=== PATIENT | female | born 1975 | race Asian ===

== ENCOUNTER 2021-11-17 09:02 | Outpatient (CLI) | payer BC, SELFPAY ==
[2021-11-17 11:22] LABS: Chloride* 101 mmol/L (96-114); Sodium* 138 mmol/L (135-149)
[2021-11-17 11:24] LABS: Cholesterol* 177 mg/dL (90-199); Creatinine* 0.5 mg/dL (0.5-1.5); Estimated Glomerular Filt Rate 116 ml/min
[2021-11-17 11:25] LABS: Blood Urea Nitrogen* 17 mg/dL (5-24); Calcium* 9.3 mg/dL (8.4-10.6); Carbon Dioxide* 27 mmol/L (20-32); Glucose* 144 mg/dL (60-115); HDL Cholesterol* 46 mg/dL (>=50); LDL Cholesterol Calculated 93 mg/dL (<100); Triglycerides* 189 mg/dL (40-149)
[2021-11-17 11:42] LABS: Creatinine Urine 150.4 mg/dL; Microalbumin Creatinine Ratio 10 mg/g (0-30); Microalbumin Urine 2 mg/dL
== END 2021-11-17 09:03 | disposition home or self-care (01) ==
PROVIDERS: PCP Family Medicine; Visit Provider Family Medicine
DX: E11.9 Type 2 diabetes mellitus without complications (principal); E78.5 Hyperlipidemia, unspecified; R03.0 Elevated blood-pressure reading, without diagnosis of hypertension; I10 Essential (primary) hypertension
CPT/HCPCS: 80048; 80061; 82043; 82570

== ENCOUNTER 2021-12-08 08:53 | Outpatient (CLI) | payer BC, SELFPAY ==
--- OUTSIDE RECORDS SUMMARY | 2021-12-08 08:33 | XMS_ITS | Clinical Summary ---
:1975 Author Organization [facility] [place] [address] Care Team Providers Name Role Phone Scott Cavanaugh MD Primary Care Provider [phone] Allergies No known active allergies Medications No known medications Active Problems Not on file Social History Tobacco Use Types Packs/Day Years Used Date Never Smoker Smokeless Tobacco: Never Used Alcohol Use Standard Drinks/Week Comments Not Asked 0 (1 standard drink = 0.6 oz pure alcoho l) Sex Assigned at Date Recorded Not on file Obstetrics History Last Filed Vital Signs Vital Sign Reading Time Taken Comments Blood Pressure 127/78 10/03/2010 5:52 PM CDT Pulse 62 10/03/2010 5:52 PM CDT Temperature 36.8 ??C (98.2 ??F) 10/03/2010 5:52 PM CDT Respiratory Rate - - Oxygen Saturation - - Inhaled Oxygen Concentration - - Weight 67.1 kg (148 lb) 10/03/2010 5:52 PM CDT Height - - Body Mass Index - - Plan of Treatment Health Maintenance Due Date Last Done Comments COVID-19 vaccine series (#1) 03/19/1975 Tdap 1985 Depression screening for age 12+ 1986 BMI (ht and wt on same day) for 1992 age 18+ Hepatitis C screening for age 0709/16/1992 18-79 Tetanus booster 1994 Colonoscopy through age 75 09/17/2019 Lipids for age 45-75 09/17/2019 Mammogram for age 45-75 09/17/2019 Pap test for age 21-65 10/06/2021 10/06/2018, 10/06/2018, 10/18/2011, Additional history exists Influenza for age 9-49 11/16/2021 Results Not on filefrom Last 3 Months Insurance Payer Benefit Plan / Subscriber ID Effective Dates Phone Addre ss Type Group BLUE CROSS BLUE CROSS OF [id number] 2007-Present [address] [place] [address] Care Teams Loan Reviewer Relationship Specialty Start Date End Date Votel, Scott Miller MD PCP - General Family Practice 10/03/10 [address] [place], [place] [id number]
[2021-12-08 09:37] LABS: Chloride* 100 mmol/L (96-114); Potassium* 4.6 mmol/L (3.6-5.1); Sodium* 137 mmol/L (135-149)
[2021-12-08 09:39] LABS: Creatinine* 0.6 mg/dL (0.5-1.5); Estimated Glomerular Filt Rate 111 ml/min
[2021-12-08 09:40] LABS: Blood Urea Nitrogen* 13 mg/dL (5-24); Carbon Dioxide* 28 mmol/L (20-32); Glucose* 172 mg/dL (60-115)
[2021-12-08 09:41] LABS: Calcium* 9.6 mg/dL (8.4-10.6)
== END 2021-12-08 08:54 | disposition home or self-care (01) ==
PROVIDERS: PCP Family Medicine; Visit Provider Family Medicine
DX: I10 Essential (primary) hypertension (principal)
CPT/HCPCS: 80048

== ENCOUNTER 2022-02-27 07:45 | Outpatient (CLI) | payer BC, SELFPAY ==
--- OUTSIDE RECORDS SUMMARY | 2022-02-27 07:49 | XMS_ITS | Clinical Summary ---
:1975 Author Organization [employer] [facility] [place] [address] Care Team Providers Name Role Phone Scott Cavanaugh MD Primary Care Provider [phone] Allergies No known active allergies Medications No known medications Active Problems Not on file Social History Tobacco Use Types Packs/Day Years Used Date Smoking Tobacco: Never Smokeless Tobacco: Never Alcohol Use Standard Drinks/Week Comments Not Asked [...] 1985 Depression screening for age 12+ 1986 HIV for age 15-65 1989 BMI (ht and wt on same day) [...] Type Group BLUE CROSS BLUE CROSS OF [id number] 2007-Present [address] [place] [address] Care Teams Machine Shop Worker Relationship Specialty Start Date End Date Votel, Scott Miller MD PCP - General Family Practice 10/03/10 [address] [place], [place] [id number]
[2022-02-27 09:08] LABS: Albumin* 4.7 g/dL (3.3-5.0)
[2022-02-27 09:09] LABS: Chloride* 103 mmol/L (96-114); Potassium* 4.6 mmol/L (3.6-5.1); Sodium* 138 mmol/L (135-149)
[2022-02-27 09:11] LABS: Aspartate Amino Transferase* 24 U/L (12-35); Bilirubin Total* 1.3 mg/dL (0.1-1.5); Blood Urea Nitrogen* 14 mg/dL (5-24); Carbon Dioxide* 28 mmol/L (20-32); Cholesterol* 173 mg/dL (90-199); Creatinine* 0.5 mg/dL (0.5-1.5); Estimated Glomerular Filt Rate 116 ml/min; Total Protein* 7.5 g/dL (6.0-8.3)
[2022-02-27 09:12] LABS: Alanine Aminotransferase* 34 U/L (4-35); Alkaline Phosphatase* 64 U/L (40-150); Calcium* 9.2 mg/dL (8.4-10.6); Glucose* 142 mg/dL (60-115); HDL Cholesterol* 46 mg/dL (>=50); LDL Cholesterol Calculated 61 mg/dL (<100); Triglycerides* 328 mg/dL (40-149)
== END 2022-02-27 07:46 | disposition home or self-care (01) ==
LOC: NFLDREF 07:46
PROVIDERS: PCP Family Medicine; Visit Provider Family Medicine
DX: E78.5 Hyperlipidemia, unspecified (principal); I10 Essential (primary) hypertension
CPT/HCPCS: 80053; 80061

== ENCOUNTER 2022-03-20 09:04 | Outpatient (CLI) | payer BC, SELFPAY ==
--- NOTE | 2022-03-20 09:15 | CRLHL7_ITS ---
For Patients: As a result of the Century Cures Act, medical imaging exams and procedure reports are released immediately into your electronic medical record. You may view this report before your referring provider. If you have questions, please contact your health care provider. BILATERAL SCREENING MAMMOGRAM WITH COMPUTER-AIDED DETECTION AND TOMOSYNTHESIS TECHNIQUE: CC and MLO views were obtained. These mammographic images have been obtained using full-field digital technique. These mammographic images were interpreted with the benefit of computer-aided detection. Breast Tomosynthesis was used in this interpretation. COMPARISON FILM: 12/06/20, 11/20/19, 11/10/18. FINDINGS: The breasts are heterogeneously dense, which may obscure small masses IMPRESSION: There is no radiographic evidence for malignancy. ASSESSMENT: BI-RADS Category 1: Negative RECOMMENDATION: Routine screening mammogram in 1 year. A lay language report of this examination will be provided to the patient. Santos Thompson M.D. Diagnostic Radiologist [email or web address] LENNOX/[email or web address] vick/Dictated by: Santos Thompson MD @ 03/21/2022 12:25:00 PM (Electronically Signed)
== END 2022-03-20 09:05 | disposition home or self-care (01) ==
LOC: MAMMO 09:06
PROVIDERS: PCP Family Medicine; Visit Provider Family Medicine
DX: Z12.31 Encounter for screening mammogram for malignant neoplasm of breast (principal); R92.2 Inconclusive mammogram
CPT/HCPCS: 77063; 77067

== ENCOUNTER 2022-03-30 07:46 | Outpatient (CLI) | payer BC, SELFPAY | END 2022-03-30 07:47 | disposition home or self-care (01) | LOC: OP CLINIC 07:49 | PROVIDERS: PCP Family Medicine; Visit Provider Internal Medicine | DX: Z12.11 Encounter for screening for malignant neoplasm of colon (principal) | CPT/HCPCS: 45378; J2250; J3010 ==

== ENCOUNTER 2022-09-04 15:10 | Outpatient (CLI) | payer BC, SELFPAY | END 2022-09-04 15:11 | disposition home or self-care (01) | LOC: NFLDREF 09-05 01:47 | PROVIDERS: PCP Family Medicine; Visit Provider Family Medicine | DX: E78.5 Hyperlipidemia, unspecified (principal); E11.9 Type 2 diabetes mellitus without complications; I10 Essential (primary) hypertension; R05.8 Other specified cough; Z79.899 Other long term (current) drug therapy | CPT/HCPCS: 80061 ==

== ENCOUNTER 2023-03-26 19:08 | Outpatient (CLI) | payer BC, SELFPAY ==
--- NOTE | 2023-03-26 19:20 | CRLHL7_ITS ---
For Patients: As a result of the Cures Act, medical imaging exams and procedure reports are released immediately into your electronic medical record. You may view this report before your referring provider. If you have questions, please contact your health care provider. BILATERAL SCREENING MAMMOGRAM WITH COMPUTER-AIDED DETECTION AND TOMOSYNTHESIS TECHNIQUE: CC and MLO views were obtained. These mammographic images have been obtained using full-field digital technique. These mammographic images were interpreted with the benefit of computer-aided detection. Breast Tomosynthesis was used in this interpretation. COMPARISON FILM: 03/20/22, 12/06/20, 11/20/19. FINDINGS: The breasts are heterogeneously dense, which may obscure small masses IMPRESSION: There is no radiographic evidence for malignancy. ASSESSMENT: BI-RADS Category 1: Negative RECOMMENDATION: Routine screening mammogram in 1 year. A lay language report of this examination will be provided to the patient. ROGER CLARK M.D. Diagnostic/Nuclear Medicine Radiologist [email or web address] CHIRAG:[email or web address] Transcribed: 3:32 p.mFranko vick/Dictated by: Roger Clark MD @ 03/28/2023 8:44:00 AM (Electronically Signed)
--- OUTSIDE RECORDS SUMMARY | 2023-03-26 19:22 | XMS_ITS | Clinical Summary ---
Author Name Unknown Organization [facility] Address [place] [address] Care Team Providers Care Enrobing Machine Feeder Name Role Phone VotelScott MD Primary Care Provider + Allergies No known active allergies Medications No known medications Social History Tobacco Use Types Packs/Day Years Used Date Smoking Tobacco: Never Smokeless Tobacco: Never Alcohol Use Standard Drinks/Week Comments Not Asked 0 (1 standard drink = 0.6 oz pur e alcohol) Sex and Gender Information Value Date Recorded Sex Assigned at Not on file Gender Identity Not on file Sexual Orientation Not on file Obstetrics History Last Filed Vital Signs Vital Sign Reading Time Taken Comments Blood Pressure 127/78 10/03/2010 5:52 PM CDT Pulse 62 10/03/2010 5:52 PM CDT Temperature 36.8 ??C (98.2 ??F) 10/03/2010 5:52 PM CD T Respiratory Rate - - Oxygen Saturation - [...] (ht and wt on same day) for age 18+ 1992 Hepatitis C screening for age 18-79 1992 Tetanus booster 1994 Colonoscopy through age 75 09/17/2019 Lipids for age 45-75 09/17/2019 Mammogram for age 45-75 09/17/2019 Pap test for age 21-65 10/06/2021 9, 10/06/2018, 10/18/2011, Additional history exists Influenza for age 9-49 11/16/2022 Pneumococcal series for age 6-64 Aged Out No longer eligible based on patient's age to complete this topic Care Teams Enrobing Machine Feeder Relationship Specialty Start Date End Date Votel, Scott Miller MD [address] [place] [address] PCP - General Family Practice 10/03/10
== END 2023-03-26 19:09 | disposition home or self-care (01) ==
LOC: MAMMO 19:09
PROVIDERS: PCP Family Medicine; Visit Provider Family Medicine
DX: Z12.31 Encounter for screening mammogram for malignant neoplasm of breast (principal); R92.2 Inconclusive mammogram
CPT/HCPCS: 77063; 77067

== ENCOUNTER 2023-04-08 08:29 | Outpatient (CLI) | payer BC, SELFPAY ==
--- OUTSIDE RECORDS SUMMARY | 2023-04-09 06:57 | XMS_ITS | Clinical Summary ---
Author Name Unknown Organization [facility] Address [place] [address] Care Team Providers Care Door Liner Helper Name Role Phone VotelScott MD Primary Care [...] age to complete this topic Care Teams Door Liner Helper Relationship Specialty Start Date End Date Votel, Scott Miller MD [address] [place] [address] PCP - General Family Practice 10/03/10
== END 2023-04-08 08:30 | disposition home or self-care (01) ==
LOC: NFLDREF 04-09 06:56
PROVIDERS: PCP Family Medicine; Referring Provider Family Medicine; Visit Provider Family Medicine
DX: E11.9 Type 2 diabetes mellitus without complications (principal); I10 Essential (primary) hypertension; E78.5 Hyperlipidemia, unspecified; Z79.899 Other long term (current) drug therapy
CPT/HCPCS: 80053; 80061; 80076; 82043; 82570; 82607

== ENCOUNTER 2023-04-17 07:01 | Outpatient (CLI) | payer BC, SELFPAY ==
--- OUTSIDE RECORDS SUMMARY | 2023-04-17 07:04 | XMS_ITS | Clinical Summary ---
Author Name Unknown Organization [facility] Address [place] [address] Care Team Providers Care Nurse Charge Rn Name Role Phone VotelScott MD Primary Care Provider + Allergies No known active allergies Medications No known medications Encounters Date Type Department Care Team Description 04/12/2023 Lab Requisition [facility] [phone] Monika Garcias MD from Last 3 Months Social History Tobacco Use Types Packs/Day Years [...] 45-75 09/17/2019 Mammogram for age 45-75 09/17/2019 Influenza for age 9-49 11/16/2022 Pap test for age 21-65 04/12/2026 4, 10/06/2018, 10/06/2018, Additional history exists Pneumococcal series for age 6-64 Aged Out No longer eligible based on patient's age to complete this topic Procedures Procedure Name Priority Date/Time Associated Diagnosis Comments LAB TRACKING EVENT Routine 04/12/2023 10 :40 AM CELEBRITY CHEF ENTREPRENEUR MEDIA PERSONALITY HPV THIN PREP Routine 04/12/2023 10:40 AM CELEBRITY CHEF ENTREPRENEUR MEDIA PERSONALITY from Last 3 Months Results * LAB TRACKING EVENT (04/12/2023 10:40 AM CELEBRITY CHEF ENTREPRENEUR MEDIA PERSONALITY) Other (Other) Client Collect / Unknown 04/12/2023 10:40 AM CELEBRITY CHEF ENTREPRENEUR MEDIA PERSONALITY 04/12/2023 6:22 PM CELEBRITY CHEF ENTREPRENEUR MEDIA PERSONALITY Monika Garcias MD LAB BILL ONLY [facility] [address] * HPV HIGH RISK (04/12/2023 10:40 AM CELEBRITY CHEF ENTREPRENEUR MEDIA PERSONALITY) TYPE 16 Negative Negative 04/16/2023 4:22 PM CELEBRITY CHEF ENTREPRENEUR MEDIA PERSONALITY [facility] TYPE 18 Negative Negative 04/16/2023 4:22 PM CELEBRITY CHEF ENTREPRENEUR MEDIA PERSONALITY [facility] OTHER HIGH RISK TYPES Negative Negative 04/16/2023 4:22 PM CELEBRITY CHEF ENTREPRENEUR MEDIA PERSONALITY [facility] TRAL LABORATORY Other (Cervical/Vagina l) 04/12/2023 10:40 AM CELEBRITY CHEF ENTREPRENEUR MEDIA PERSONALITY 04/15/2023 12:27 PM CELEBRITY CHEF ENTREPRENEUR MEDIA PERSONALITY [facility] 04/16/2023 4:22 PM CELEBRITY CHEF ENTREPRENEUR MEDIA PERSONALITY HPV types 16, 18, 31, 33, 35, 39, 45, 51, 52, 56, 58, 59, 66 and 68 DNA were undetectable or below the pre-set threshold. Methodology: Peter Benita 4800 HPV Test Monika Garcias MD MICROBIOLOGY [facility] [address] [place] [address], [place] from Last 3 Months Care Teams Nurse Charge Rn Relationship Specialty Start Date End Date Votel, Scott Miller MD [address] [place] [address] PCP - General Family Practice 10/03/10
--- NOTE | 2023-04-17 07:15 | CRLHL7_ITS ---
For Patients: As a result of the Century Cures Act, medical imaging exams and procedure reports are released immediately into your electronic medical record. You may view this report before your referring provider. If you have questions, please contact your health care provider. INDICATION: elevated LFTs. COMPARISON: none TECHNIQUE: Real time feliciano scale imaging and color Doppler analysis was performed of the right upper quadrant. FINDINGS: The patient`s liver is of normal size and has diffusely increased echogenicity. Simple cyst is present within the left hepatic lobe measuring 12 x 11 x 14 millimeters. There is a normal appearance of the hepatic IVC and proximal abdominal aorta. There is no evidence of ascites. The gallbladder is of normal size and there is mild layering debris. The gallbladder wall measures 1 mm in thickness. The common bile duct is of normal size and measures 4 mm in diameter at the level of the hardeep hepatis. The pancreas appears normal. There is no evidence of a stone or hydronephrosis within the right kidney. The right kidney measures 9.6 cm in length. IMPRESSION: Diffuse hepatic steatosis. Mild layering sludge/cholesterol stones in the gallbladder consistent with cholelithiasis. Dictated by Santos Thompson MD @ 04/17/2023 10:05:58 AM (Electronically Signed)
== END 2023-04-17 07:02 | disposition home or self-care (01) ==
LOC: US 07:02
PROVIDERS: PCP Family Medicine; Visit Provider Family Medicine
DX: R74.8 Abnormal levels of other serum enzymes (principal); K76.0 Fatty (change of) liver, not elsewhere classified; K80.20 Calculus of gallbladder without cholecystitis without obstruction
CPT/HCPCS: 76705

== ENCOUNTER 2023-07-08 08:32 | Outpatient (CLI) | payer BC, SELFPAY ==
--- OUTSIDE RECORDS SUMMARY | 2023-07-10 11:39 | XMS_ITS | Clinical Summary ---
Author Name Unknown Organization [facility] [facility] Address [place] [address] Care Team Providers Care Rn Emergency Room Name Role Phone VotelScott MD Primary Care Provider + Allergies No known active allergies Medications No known medications Encounters Date Type Department Care Team Description 04/12/2023 Lab Requisition [facility] [phone] Monika Garcias MD from Last 3 Months [...] Health Maintenance Due Date Last Done Comments Tdap 1985 Depression screening for age 12+ 1986 HIV for age 15-65 1989 BMI (ht and wt on same day) for age 18+ 1992 Hepatitis C screening for age 18-79 1992 Tetanus booster 1994 Colonoscopy through age 75 09/17/2019 Lipids for age 45-75 09/17/2019 Mammogram for age 45-75 09/17/2019 COVID-19 vaccine series (2022- season) 2022 Influenza for age 9-49 11/17/2023 Pap test for age 21-65 04/12/2026 4, 10/06/2018, 10/06/2018, Additional history exists Pneumococcal series for age 6-64 Aged Out No longer eligible based on patient's age to complete this topic Procedures Procedure Name Priority Date/Time Associated Diagnosis Comments LAB TRACKING EVENT Routine 04/12/2023 10 :40 AM BREAKER UP MACHINE OPERATOR CHALK EXTRUDING MACHINE OPERATOR THIN PREP PAP SCREEN IMAGED- Unsuccessful Attempt Routine 04/12/2023 10:40 AM BREAKER UP MACHINE OPERATOR HPV THIN PREP Routine 04/12/2023 10:40 AM BREAKER UP MACHINE OPERATOR from Last 3 Months Results * LAB TRACKING EVENT (04/12/2023 10:40 AM BREAKER UP MACHINE OPERATOR) Other (Other) Client Collect / Unknown 04/12/2023 10:40 AM BREAKER UP MACHINE OPERATOR 04/12/2023 6:22 PM BREAKER UP MACHINE OPERATOR Monika Garcias MD LAB BILL ONLY [facility] LABORATORY [address] [place] [address], * CHALK EXTRUDING MACHINE OPERATOR THIN PREP PAP SCREEN IMAGED (04/12/2023 10:40 AM BREAKER UP MACHINE OPERATOR) - Unsuccessful Attempt Case Report Gynecologic Cytology Report ? Case: [id number] ? Authorizing Provider: ??Monika Garcias MD ??Collected: ? 04/12/2023 1040 ? Ordering Location: ? [facility] ?Received: ?04/15/2023 1227 ? First Screen: ?Sulema Barajas ? Rescreen: ?Jessica Cruz ? Specimen: ?CHALK EXTRUDING MACHINE OPERATOR ThinPrep Vial Screening, Cervical/Vaginal ? [facility]/23[facility]2023 7:04 [facility] INTERPRETATION /RESULT UNSATISFACTORY FOR EVALUATION (UNS) (none) 04/23/2023 7:04 AM [facility] IMEN ADEQUACY Specimen processed and examined, but unsatisfactory for evaluation of epithelial abnormality because of: Scant cellularity 04/23/2023 7:04 AM [facility] [employer] LABORATORY-C ENTRAL LABORATORY HPV REQUEST HPV and PAP 04/23/2023 7:04 AM [facility] [employer] LABORATORY-C ENTRAL LABORATORY Date of LMP 04/23/2023 7:04 AM [facility] Comment:unknown Last Pap Date 10/06/2018 04/23/2023 7:04 AM [facility] [employer] LABORATORY-C ENTRAL LABORATORY Last Pap Result NIL 04/23/2023 7:04 AM [facility] [employer] LABORATORY-C ENTRAL LABORATORY Abnormal Pap or Browns Bx in last 5 years No 04/23/2023 7:04 AM [facility] [employer] LABORATORY-C ENTRAL LABORATORY Browns Bx Done Today No 04/23/2023 7:04 AM [facility] Additional Information 04/23/2023 7:04 AM BREAKER UP MACHINE OPERATOR [facility] ENTRND LABORATORY Comment: Interpreted at [facility] - [address] [facility] [address], [place] [address] Automated Review Failed 04/23/2023 7:04 AM [facility] ENTRND LABORATORY Comment:Processing failed, m anual screening required. ThinPrep Imaging System, [employer] ANCILLARY TESTING CHALK EXTRUDING MACHINE OPERATOR HPV Ordered, Please see separate report 04/23/2023 7:04 AM [facility] Note The pap test is a screening technique, not a diagnostic procedure. It is used primarily to screen for squamous cancers and precursor lesions. Published studies have shown that it is subject to both false negative and false positive results. The pap test should not be used as the sole means to diagnose or exclude pre-malignant and malignant lesions. 04/23/2023 7:04 AM BREAKER UP MACHINE OPERATOR [facility] ENTRND LABORATORY Other (Cervical/Vagina l) 04/12/2023 10:40 AM BREAKER UP MACHINE OPERATOR 04/15/2023 12:27 PM BREAKER UP MACHINE OPERATOR Monika Garcias MD PATHOLOGY/CYTOLO GY [facility] [address] [place] [address], * HPV HIGH RISK (04/12/2023 10:40 AM BREAKER UP MACHINE OPERATOR) TYPE 16 Negative Negative 04/16/2023 4:22 PM BREAKER UP MACHINE OPERATOR [facility] TRAL LABORATORY TYPE 18 Negative Negative 04/16/2023 4:22 PM BREAKER UP MACHINE OPERATOR [facility] TRAL LABORATORY OTHER HIGH RISK TYPES Negative Negative 04/16/2023 4:22 PM BREAKER UP MACHINE OPERATOR [facility] TRA LABORATORY Other (Cervical/Vagina l) 04/12/2023 10:40 AM BREAKER UP MACHINE OPERATOR 04/15/2023 12:27 PM BREAKER UP MACHINE OPERATOR Narrative [facility] - 04/16/2023 4:22 PM BREAKER UP MACHINE OPERATOR HPV types 16, 18, 31, 33, 35, 39, 45, 51, 52, 56, 58, 59, 66 and 68 DNA were undetectable or below the pre-set threshold. Methodology: Peter Benita 4800 HPV Test Monika Garcias MD MICROBIOLOGY [facility] LABORATORY-CENTRAL LABORATORY [address] [place] [address], from Last 3 Months Care Teams Rn Emergency Room Relationship Specialty Start Date End Date Votel, Scott Miller MD [address] [place] [address] PCP - General Family Practice 10/03/10
== END 2023-07-08 08:33 | disposition home or self-care (01) ==
LOC: NFLDREF 07-10 11:34
PROVIDERS: PCP Family Medicine; Referring Provider Family Medicine; Visit Provider Family Medicine
DX: E78.5 Hyperlipidemia, unspecified (principal); I10 Essential (primary) hypertension; R74.8 Abnormal levels of other serum enzymes
CPT/HCPCS: 80053

== ENCOUNTER 2024-01-06 07:55 | Outpatient (CLI) | payer BC, SELFPAY ==
--- OUTSIDE RECORDS SUMMARY | 2024-01-07 15:53 | XMS_ITS | Clinical Summary ---
Author Organization [employer] [facility] Address [place] [address] Care Team Providers Care Lead Business Systems Analyst Name Role Phone VotelScott MD Primary Care [...] for age 45-75 09/17/2019 COVID-19 vaccine series (2023- season) 2023 Influenza for age 9-49 11/17/2023 Pap test for age 21-65 04/12/2026 , 10/06/2018, 10/06/2018, Additional history exists Pneumococcal series for age 6-64 Aged Out No longer eligible based on patient's age to complete this topic Procedures Procedure Name Priority Date/Time Associated Diagnosis Comments HPV HIGH RISK Routine 04/12/2023 10:40 AM QUALITY CONTROL TESTER from Last 3 Months or Most Recently Relevant to Health Maintenance Results * HPV HIGH RISK (04/12/2023 10:40 AM QUALITY CONTROL TESTER) TYPE 16 Negative Negative 04/16/2023 4:22 PM QUALITY CONTROL TESTER [facility] LABORAT[facility] TRAL LABORATORY TYPE 18 Negative Negative 04/16/2023 4:22 PM QUALITY CONTROL TESTER [facility] TRAL LABORATORY OTHER HIGH RISK TYPES Negative Negative 04/16/2023 4:22 PM QUALITY CONTROL TESTER [facility] TRAL LABORATORY Other (Cervical/Vagina l) 04/12/2023 10:40 AM QUALITY CONTROL TESTER 04/15/2023 12:27 PM QUALITY CONTROL TESTER Narrative [facility] LABORATORY-CENTRAL LABORATORY - 04/16/2023 4:22 PM QUALITY CONTROL TESTER HPV types 16, 18, 31, 33, 35, 39, 45, 51, 52, 56, 58, 59, 66 and 68 DNA were undetectable or below the pre-set threshold. Methodology: Peter Benita 4800 HPV Test Monika Garcias MD MICROBIOLOGY [facility]-CENTRAL LABORATORY [address] [place] [address], from Last 3 Months or Most Recently Relevant to Health Maintenance Care Teams Lead Business Systems Analyst Relationship Specialty Start Date End Date Votel, Scott Miller MD [address] [place] [address] PCP - General Family Practice 10/03/10
== END 2024-01-06 07:56 | disposition home or self-care (01) ==
LOC: NFLDREF 01-07 15:51
PROVIDERS: PCP Family Medicine; Referring Provider Family Medicine; Visit Provider Family Medicine
DX: I10 Essential (primary) hypertension (principal); E11.9 Type 2 diabetes mellitus without complications
CPT/HCPCS: 80053

== ENCOUNTER 2024-04-07 09:14 | Outpatient (CLI) | payer BC, SELFPAY ==
--- NOTE | 2024-04-07 09:15 | CRLHL7_ITS ---
For Patients: As a result of the Century Cures Act, medical imaging exams and procedure reports are released immediately into your electronic medical record. You may view this report before your referring provider. If you have questions, please contact your health care provider. BILATERAL SCREENING MAMMOGRAM WITH COMPUTER-AIDED DETECTION AND TOMOSYNTHESIS TECHNIQUE: CC and MLO views were obtained. These mammographic images have been obtained using full-field digital technique. These mammographic images were interpreted with the benefit of computer-aided detection. Breast Tomosynthesis was used in this interpretation. COMPARISON FILM: 03/26/23, 03/20/22, 12/06/20. FINDINGS: The breasts are heterogeneously dense, which may obscure small masses. IMPRESSION: There is no radiographic evidence for malignancy. ASSESSMENT: BI-RADS Category 1: Negative RECOMMENDATION: Routine screening mammogram in 1 year. A lay language report of this examination will be provided to the patient. Khai Ross M.D. Diagnostic/Nuclear Medicine Radiologist [email or web address] CHIRAG/[email or web address] SP/Dictated by: Khai Ross MD @ 04/09/2024 9:07:00 AM (Electronically Signed)
== END 2024-04-07 09:15 | disposition home or self-care (01) ==
LOC: MAMMO 09:14
PROVIDERS: PCP Family Medicine; Visit Provider Family Medicine
DX: Z12.31 Encounter for screening mammogram for malignant neoplasm of breast (principal); R92.333 Mammographic heterogeneous density, bilateral breasts
CPT/HCPCS: 77063; 77067

== ENCOUNTER 2024-04-14 08:20 | Outpatient (CLI) | payer BC, SELFPAY | END 2024-04-14 08:21 | disposition home or self-care (01) | LOC: NFLDREF 04-20 01:43 | PROVIDERS: PCP Family Medicine; Referring Provider Family Medicine; Visit Provider Family Medicine | DX: E78.5 Hyperlipidemia, unspecified (principal); I10 Essential (primary) hypertension; E11.9 Type 2 diabetes mellitus without complications; R74.8 Abnormal levels of other serum enzymes; Z79.899 Other long term (current) drug therapy; Z11.59 Encounter for screening for other viral diseases | CPT/HCPCS: 80053; 80061; 82043; 82570; 82607; 83540; 83550; 86803; 87340 ==

== ENCOUNTER 2024-04-16 10:54 | Outpatient (CLI) | payer BC, SELFPAY ==
[2024-04-18 02:47] LABS: HPV Source Cervical/Vag; HPV, High Risk by TMA Not Detected
== END 2024-04-16 10:55 | disposition home or self-care (01) ==
PROVIDERS: PCP Family Medicine; Visit Provider Family Medicine
DX: Z12.4 Encounter for screening for malignant neoplasm of cervix (principal); Z11.51 Encounter for screening for human papillomavirus (HPV)
CPT/HCPCS: 87624; 87625; 88141; 88142

== ENCOUNTER 2024-10-12 08:19 | Outpatient (CLI) | payer BC, SELFPAY ==
[2024-10-12 10:55] LABS: Hematocrit 41.4 % (33.0-51.0); Hemoglobin* 14.6 gm/dL (12.0-16.0); Immature Granulocytes Abs Auto 0.01 K/uL (0.00-0.30); Immature Granulocytes Pct Auto 0.2 %; Lymphocytes Absolute Auto 1.71 K/uL (0.90-2.90); Mean Corpuscular HGB Conc 35 gm/dL (32-36); Mean Corpuscular Hemoglobin 31 pg (26-34); Mean Corpuscular Volume 89 fL (80-100); RDW Coefficient of Variation % 11.3 % (11.5-15.5); Red Blood Count 4.66 m/uL (4.00-5.20); White Blood Count* 5.32 K/uL (4.50-11.00)
[2024-10-12 10:58] LABS: Slide Review Reflex No
== END 2024-10-12 08:20 | disposition home or self-care (01) ==
LOC: NPINS 08:20
PROVIDERS: PCP Family Medicine; Visit Provider Student in an Organized Health Care Education/Training Program
DX: L66.12 Frontal fibrosing alopecia (principal); Z79.899 Other long term (current) drug therapy
CPT/HCPCS: 80053; 82955; 85025